=== PATIENT | male | born 1980 | race Caucasian/White ===

== ENCOUNTER 2020-11-22 18:56 | Emergency (ER) | payer OTHER ==
[2020-11-23] MEDS ORDERED: DELSYM30 MG/5 ML PO (00:44)
[2020-11-23] MEDS ORDERED: FLONASE 0.05% N16 GM (00:44)
[2020-11-23] MEDS ORDERED: MEDROL DOSEPAK 24 MG PO (00:44)
== END 2020-11-23 00:25 | disposition home or self-care (01) ==
LOC: ER1 18:56
DX: R05 Cough (principal); R51.9 Headache, unspecified; Z20.822 Contact with and (suspected) exposure to COVID-19
CPT/HCPCS: 71045; 99283; U0002